=== PATIENT | female | born 1985 | race Caucasian/White ===

== ENCOUNTER 2018-03-23 17:04 | Outpatient (CLI) | payer BC | END 2018-03-23 18:50 | disposition home or self-care (01) | LOC: OBT 17:04 → L-D 17:05 → OBT 18:50 | DX: O36.8120 Decreased fetal movements, second trimester, not applicable or unspecified (principal); Z3A.25 25 weeks gestation of pregnancy | CPT/HCPCS: 76818 ==

== ENCOUNTER 2018-03-30 12:33 | Outpatient (CLI) | payer BC | END 2018-03-30 14:10 | disposition home or self-care (01) | LOC: OBT 12:33 → L-D 12:33 → OBT 14:10 | DX: O36.8120 Decreased fetal movements, second trimester, not applicable or unspecified (principal); Z3A.26 26 weeks gestation of pregnancy | CPT/HCPCS: 76818 ==

== ENCOUNTER 2018-06-22 18:19 | Outpatient (CLI) | payer BC ==
[2018-06-22 19:30] LABS: ADD UMIC YES; UR ASCORBIC ACID 40 mg/dL (NEGATIVE); UR BACTERIA FEW /HPF (NONE SEEN); UR BILIRUBIN (Dip) NEGATIVE (NEGATIVE); UR BLOOD (Dip) NEGATIVE (NEGATIVE); UR CLARITY SLIGHTLY CLOUDY (CLEAR); UR COLOR YELLOW (YELLOW); UR GLUCOSE (Dip) NEGATIVE (NEGATIVE); UR KETONES (Dip) NEGATIVE (NEGATIVE); UR LEUKOCYTE ESTERASE (Dip) 1+ Leu/ul (NEGATIVE); UR MUCUS FEW /HPF (NONE SEEN); UR NITRITE (Dip) NEGATIVE (NEGATIVE); UR RBC 1 /HPF (0-5); UR SPECIFIC GRAVITY (Dip) 1.025 (1.003-1.030); UR SQUAMOUS EPITHELIAL CELL MODERATE /HPF (FEW); UR TOTAL PROTEIN (Dip) NEGATIVE (NEGATIVE); UR UROBILINOGEN (Dip) NEGATIVE (NEGATIVE); UR WBC 26 /HPF (0-5)
== END 2018-06-22 21:04 | disposition home or self-care (01) ==
LOC: OBT 18:19 → L-D 18:20 → OBT 21:08
DX: O47.1 False labor at or after 37 completed weeks of gestation (principal); Z3A.38 38 weeks gestation of pregnancy
CPT/HCPCS: 76818; 81001

== ENCOUNTER 2018-07-02 23:20 | Inpatient (IN) | payer BC ==
[2018-07-03] MEDS ORDERED: LACTATED RINGER'S 1,000 ML IV (00:59)
[2018-07-03] MEDS ORDERED: IBUPROFEN 600 MG TAB PO (01:00)
[2018-07-03] MEDS ORDERED: BUTORPHANOL 2 MG INJ IV (01:00)
[2018-07-03] MEDS ORDERED: METHYLERGONOVINE 0.2 MG INJ IM ×2 (01:00→21:00)
[2018-07-03] MEDS ORDERED: BUTORPHANOL 1 MG INJ IV (01:00)
[2018-07-03] MEDS ORDERED: CARBOPROST 250 MCG INJ IM ×2 (01:00→21:00)
[2018-07-03] MEDS ORDERED: MISOPROSTOL 200 MCG TAB PR ×2 (01:00→21:00)
[2018-07-03] MEDS: MINERAL OIL LIGHT 10 ML VIAL TOP (01:00)
[2018-07-03] MEDS ORDERED: LIDOCAINE 1% (MPF) 30 ML INJ INJ (01:00)
[2018-07-03] MEDS: LACTATED RINGER'S 1,000 ML IV ×4 (02:02→17:21)
[2018-07-03 03:07] LABS: ADD MAN DIFF? NO
[2018-07-03 03:08] LABS: WHITE BLOOD COUNT 9.4 10^3/ul (4.8-10.8)
[2018-07-03 03:08] LABS: BASOPHILS % 0.3 % (0.0-2.0); EOSINOPHILS % 0.4 % (0.0-7.0); HEMATOCRIT 37.3 % (37.0-47.0); HEMOGLOBIN 12.3 g/dl (12.0-16.0); LYMPHOCYTES # 1.7 10^3/ul (0.8-2.9); LYMPHOCYTES % 18.5 % (15.0-51.0); MEAN CORPUSCULAR HEMOGLOBIN 30.3 pg (29.0-33.0); MEAN CORPUSCULAR VOLUME 91.9 fl (82.0-101.0); MEAN PLATELET VOLUME 11.5 fl (7.4-10.4); MONOCYTE # 0.9 10^3/ul (0.3-0.9); MONOCYTES % 9.3 % (0.0-11.0); NEUTROPHIL # 6.6 10^3/ul (1.6-7.5); NEUTROPHILS % 71.1 % (39.0-77.0); PLATELET COUNT 150 10^3/UL (140-415); RED BLOOD COUNT 4.06 10^6/ul (4.20-5.40); RED CELL DISTRIBUTION WIDTH 14.1 % (11.5-14.5)
[2018-07-03 03:27] LABS: INR 0.92; PROTIME 12.5 Sec (11.9-14.9)
[2018-07-03 03:28] LABS: PARTIAL THROMBOPLASTIN TIME 24.1 Sec (23.0-35.0)
[2018-07-03 12:12] LABS: HEPATITIS B SURFACE ANTIGEN NEGATIVE (NEGATIVE)
[2018-07-03] MEDS ORDERED: DIPHENHYDRAMINE 50 MG INJ IV (14:30)
[2018-07-03] MEDS ORDERED: FENTAnyl 2MCG/ML-ROPIV 0.2% 100 ML BAG EPI (14:30)
[2018-07-03] MEDS ORDERED: HYDROmorphONE 0.5 MG/0.5 ML SYG IV ×2 (14:30)
[2018-07-03] MEDS ORDERED: ZOLPIDEM 5 MG TAB PO ×2 (14:30→21:00)
[2018-07-03] MEDS ORDERED: ONDANSETRON 4 MG INJ IV (14:30)
[2018-07-03] MEDS ORDERED: NALOXONE (0.4 MG/ML) INJ IV (14:30)
[2018-07-03] MEDS ORDERED: KETOROLAC 30 MG INJ IV (14:30)
[2018-07-03 15:03] LABS: RAPID PLASMA REAGIN NONREACTIVE (NR)
[2018-07-03] MEDS: OXYTOCIN 30 UNITS/LR 500 ML IV ×3 (18:05→22:37)
[2018-07-03] MEDS ORDERED: OXYTOCIN 30 UNITS/LR 500 ML IV (21:00)
[2018-07-03] MEDS ORDERED: OXYCODONE/ASPIRIN (4.88/325) TAB PO (21:00)
[2018-07-03] MEDS: SENNA/DOCUSATE NA (8.6MG/50MG) TAB PO (21:16)
[2018-07-03] MEDS: BENZOCAINE 20% 56 ML SPRAY TOP (23:27)
[2018-07-03] MEDS: LANOLIN HPA 1 PKT TOP (23:27)
[2018-07-03] MEDS: WITCH HAZEL/GLYCERIN PAD PR (23:27)
[2018-07-03] MEDS: IBUPROFEN 600 MG TAB PO (23:31)
[2018-07-04] MEDS: OXYCODONE/ASPIRIN (4.88/325) TAB PO (04:51)
[2018-07-04] MEDS: IBUPROFEN 600 MG TAB PO ×4 (06:14→23:41)
[2018-07-04 08:43] LABS: ADD MAN DIFF? NO
[2018-07-04 08:53] LABS: WHITE BLOOD COUNT 12.8 10^3/ul (4.8-10.8)
[2018-07-04 08:53] LABS: BASOPHILS % 0.2 % (0.0-2.0); EOSINOPHILS # 0.1 10^3/ul (0.0-0.5); EOSINOPHILS % 0.5 % (0.0-7.0); HEMATOCRIT 35.5 % (37.0-47.0); HEMOGLOBIN 11.7 g/dl (12.0-16.0); LYMPHOCYTES # 1.8 10^3/ul (0.8-2.9); MEAN CORPUSCULAR HEMOGLOBIN 30.1 pg (29.0-33.0); MEAN CORPUSCULAR VOLUME 91.3 fl (82.0-101.0); MEAN PLATELET VOLUME 11.8 fl (7.4-10.4); MONOCYTES % 8.1 % (0.0-11.0); NEUTROPHIL # 9.8 10^3/ul (1.6-7.5); NEUTROPHILS % 76.7 % (39.0-77.0); PLATELET COUNT 134 10^3/UL (140-415); RED BLOOD COUNT 3.89 10^6/ul (4.20-5.40); RED CELL DISTRIBUTION WIDTH 14.3 % (11.5-14.5)
[2018-07-04] MEDS: SENNA/DOCUSATE NA (8.6MG/50MG) TAB PO ×2 (09:18→21:06)
[2018-07-05] MEDS: IBUPROFEN 600 MG TAB PO ×2 (06:16→12:19)
[2018-07-05] MEDS: DIPHTH/TET/ACEL PERTUSS (ADULT) 0.5 ML VIAL IM* (09:20)
[2018-07-05] MEDS: WITCH HAZEL/GLYCERIN PAD PR (09:45)
[2018-07-05] MEDS: SENNA/DOCUSATE NA (8.6MG/50MG) TAB PO (09:45)
== END 2018-07-05 15:50 | disposition home or self-care (01) | DRG 807 ==
LOC: L-D 07-03 07:14 → PP1 07-03 20:25
PROVIDERS: Obstetrics & Gynecology
PROC: 10E0XZZ Delivery of Products of Conception, External Approach (ICD-10-PCS; principal; 2018-07-03)
PROC: 0HQ9XZZ Repair Perineum Skin, External Approach (ICD-10-PCS; 2018-07-03)
DX: O70.9 Perineal laceration during delivery, unspecified (principal); Z37.0 Single live birth; Z3A.40 40 weeks gestation of pregnancy
CPT/HCPCS: 62319; 85025; 85610; 85730; 86592; 86850; 86900; 86901; 87340